=== PATIENT | female | born 1970 | race Caucasian/White ===

== ENCOUNTER 2017-03-04 09:33 | Emergency (ER) | payer BC ==
[2017-03-04 09:59] VITALS: BP 130/94
--- NOTE | 2017-03-04 10:15 | UC ---
Throat Pain/Nasal Taiwo HPI - HPI Summary HPI Summary: 46 y/o female presents to the urgent care c/o sore throat and sinus congestion for the past 5 days. Pt reports it started with the sore throat and now she has sinus congestion with green nasal discharge and + post nasal drip. She has a DE LEÓN that is 8/10 and temporal . Pt denies fever, SOB, cough, chest pain, N/V/D , seasonal allergies. - History of Current Complaint Chief Complaint: UCGeneralIllness Stated Complaint: SINUS COMPLAINT Time Seen by Provider: 03/04/17 10:00 Hx Obtained From: Patient Hx Last Menstrual Period: 02/20/17 ?: No Onset/Duration: Gradual Onset, Lasting Days, Still Present Severity: Moderate Pain Intensity: 8 Pain Scale Used: 0-10 Numeric Associated Signs & Symptoms: Positive: Dysphagia, Sinus Discomfort, Nasal Discharge - green discharge. Negative: Fever, Vomiting, Rash - Epiglottits Risk Factors Epiglottis Risk Factors: Negative - Allergies/Home Medications Allergies/Adverse Reactions: Allergies Allergy/AdvReac Type Severity Reaction Status Date / Time Tetracycline Allergy Airway Verified 03/04/17 09:53 Obstruction Home Medications: Home Medications Phenylephrine-Chlorpheniramine [Nanci-Conifer Plus Cold & 5-2-10-325 mg] 1 [History] PMH/Surg Hx/FS Hx/Imm Hx Previously Healthy: Yes - Surgical History Surgical History: Yes Surgery Procedure, Year, and Place: left partial hysterectomy; right foot; left knee; double fracture left arm; dental extractions; wisdom teeth,tubal ligation. RIGHT WRIST, CATARACT - Family History Known Family History: Positive: Hypertension, Diabetes Family History: Lung cancer - Social History Occupation: Employed Full-time Lives: With Family Alcohol Use: Occasionally Alcohol Amount: few drinks a week Substance Use Type: None Smoking Status (MU): Light Every Day Tobacco Smoker Type: Cigarettes Amount Used/How Often: 1 CIG/DAY Length of Time of Smoking/Using Tobacco: 30+ YRS Have You Smoked in the Last Year: Yes Household Exposure Type: Cigarettes Review of Systems Constitutional: Negative Skin: Negative Eyes: Negative ENT: Sore Throat, Nasal Discharge - green Respiratory: Negative Cardiovascular: Negative Gastrointestinal: Negative Genitourinary: Negative Motor: Negative Neurovascular: Negative Musculoskeletal: Negative Neurological: Negative Psychological: Negative All Other Systems Reviewed And Are Negative: Yes Physical Exam Triage Information Reviewed: Yes Appearance: Well-Appearing, No Pain Distress, Well-Nourished, Obese Vital Signs: Initial Vital Signs Temp 98.3 F 03/04/17 09:54 Pulse 100 03/04/17 09:54 Resp 18 03/04/17 09:54 BP 130/94 03/04/17 09:54 Pulse Ox 100 03/04/17 09:54 Vital Signs Reviewed: Yes Eye Exam: Normal Eyes: Positive: Conjunctiva Clear - PERRLA, EOMI, fundus groosly normal ENT: Positive: Hearing grossly normal, Pharyngeal erythema - w/ mild exudate on left side, Nasal drainage - Nasal mucosa red and edematous, with green nasal discharge, TMs normal, Tonsillar swelling, Tonsillar exudate - mild exudate on left side Dental Exam: Normal Neck exam: Normal Neck: Positive: Supple, Nontender, No Lymphadenopathy Respiratory Exam: Normal Respiratory: Positive: Chest non-tender, Lungs clear, Normal breath sounds Cardiovascular Exam: Normal Cardiovascular: Positive: RRR, No Murmur, Pulses Normal Abdominal Exam: Normal Abdomen Description: Positive: Nontender, No Organomegaly, Soft Bowel Sounds: Positive: Present Musculoskeletal Exam: Normal Musculoskeletal: Positive: Strength Intact, ROM Intact, No Edema Neurological Exam: Normal Psychological Exam: Normal Skin Exam: Normal Throat Pain/Nasal Course/Dx - Course Course Of Treatment: Sore throat with sinus pressure x 5 days: Hx obtained. PE abnormal finding:ENT: Positive: Hearing grossly normal, Pharyngeal erythema - w/ mild exudate on left side, Nasal drainage - Nasal mucosa red and edematous , with green nasal discharge, TMs normal, Tonsillar swelling, Tonsillar exudate - mild exudate on left side. Rapid strep ordered. Result: Negative, Most likely allergic sinusitis. Pt Rx Cetirizine 10mg PO qd and Flonase nasal spray to alleviate symptoms. Pt with DE LEÓN, Rx Ibuprofen 800mg q8hrs prn to alleviate symptoms. Advised to use saline nasal srapy to wash of sinus discahrge and increase fluid intake, and if symptoms persists or worsen to return to the urgent care or f/u with her PCP. Pt understood and agreed. - Differential Dx/Diagnosis Differential Diagnosis/HQI/PQRI: Laryngitis, Mononucleosis, Otitis Media, Peritonsillar Abscess, Pharyngitis, Tonsillitis, URI Provider Diagnoses: Allergic rhinitis, Headache Discharge - Discharge Plan Condition: Stable Disposition: HOME Prescriptions: Cetirizine* [ZyrTEC 10 MG TAB*] 10 mg PO DAILY #30 tab Fluticasone NASAL SPRAY 50MCG* [Flonase NASAL SPRAY 50MCG*] 2 spray BOTH NARES DAILY #1 btl Ibuprofen TAB* [Motrin TAB* 800 MG] 800 mg PO Q8H #20 tab Patient Education Materials: Allergic Rhinitis (ED) Referrals: Malathi Mtz MD [Primary Care Provider] - Additional Instructions: Please take medications as directed to alleviate symptoms, increase fluid intake , and rest. The patient was advised to stay away of allergens. The patient was instructed to return to the urgent care or follow up with your PCP if symptoms worsen. The patient understands and agrees.
== END 2017-03-04 10:47 | disposition home or self-care (01) ==
LOC: UCEAST 09:33
DX: J30.9 Allergic rhinitis, unspecified (principal); R51 Headache; E66.9 Obesity, unspecified; Z90.711 Acquired absence of uterus with remaining cervical stump; Z88.1 Allergy status to other antibiotic agents; F17.210 Nicotine dependence, cigarettes, uncomplicated
CPT/HCPCS: 87651; 99212; G0463